=== PATIENT | male | born 1995 | race Caucasian/White ===

== ENCOUNTER 2016-10-11 17:26 | Emergency (ER) | payer OTHER ==
--- NOTE | 2016-10-11 18:53 | ED NURSING NOTES ---
Clinical Report - Nurses [facility] [address] [place] [address] 10/11/2016 17:32 Patient: YVES HARRIS TRIAGE Acuity: LEVEL 4. Chief Complaint: INJURY TO FACE. Alert. No acute distress. --17:49 Dalia Lopez R.N. 17:42 10/11/16. BP: 122/67. HR: 82. RR: 16. O2 saturation: 100%. Temp: 98 F (oral). Pain level now: 0/10. --17:49 Dalia Lopez R.N. Weight: 59.8 kg stated. Height/Length: 72 inches Measured. BMI: 17.9. --17:46 Dalia Lopez R.N. Medications None. --17:43 Dalia Lopez R.N. Medication/allergy information source: the patient. --17:49 Dalia Lopez R.N. Allergies No Known Drug Allergy. --17:43 Dalia Lopez R.N. History Arrived by private vehicle. Historian: patient. Accompanied by (jordan). Primary physician (none). This occurred just prior to arrival. Occurred at work. He sustained a laceration from a sharp edge. No loss of consciousness. No headache. 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 PAST MEDICAL HX: Tetanus status: up-to-date. SOCIAL HX: Current every day light tobacco smoker (cigarette). History of drug use: marijuana. No alcohol use. FALL RISK ASSESSMENT: Fall risk assessment completed. No fall risk identified. NUTRITIONAL RISK ASSESSMENT: The nutritional risk assessment revealed no deficiencies. FUNCTIONAL ASSESSMENT: Functional assessment: no impairments noted. LEARNING NEEDS ASSESSMENT: The learning needs assessment revealed no barriers. SKIN INTEGRITY ASSESSMENT: Skin integrity risk assessment completed. No skin integrity risk identified. --17:49 Dalia Lopez R.N. Assessment GENERAL / NEURO / PSYCH: Alert. Oriented X 4. Appears in no acute distress. Patient appears calm and cooperative. RESPIRATORY: Respirations not labored. CVS: Capillary refill less than 2 seconds. GI / : Abdomen nontender. SKIN: Mucous membranes are pink. Skin is warm and dry. --17:50 Dalia Lopez R.N. Interventions ID band on patient. To treatment room. --17:49 Dalia Lopez R.N. PHYSICAL ASSESSMENT 17:50 10/11/16. Ambulatory to room. GENERAL / NEURO / PSYCH: Alert. Oriented X 4. Appears in no acute distress. HEENT: Left cheek: subcutaneous laceration with controlled bleeding. Head non-tender. Pupils equal, round and reactive to light. Voice within normal limits. No swelling of head. No nasal injury noted. Mucous membranes are pink. RESPIRATORY: Respirations not labored. SKIN: Skin is warm and dry. --17:50 Dalia Lopez R.N. NURSING PROGRESS NOTES 17:51 10/11/16. Patient gowned. Two patient identifiers checked. Call light placed in reach. Side rails up x 1. Bed placed in lowest position. Brakes of bed on. --17:51 Dalia Lopez R.N. DISPOSITION / DISCHARGE 18:51 10/11/16. BP: 118/54. HR: 72. RR: 12. O2 saturation: 100%. Temp: 98.1 F (oral). Pain level now: 0/10. --18:51 Dalia Lopez R.N. 19:05. Condition at departure: improved. No learning barriers present. Discharge instructions provided and reviewed with the patient. Reviewed wound care instructions. Patient verbalized understanding. Written instructions provided in Bangladeshi. The patient was discharged home and accompanied by spouse. He left the Emergency Department ambulatory and via private vehicle. Spouse driving. Medication list reviewed and validated. --19:08 Shantell Garner R.N. 18:51 10/11/16. BP: 118/54. HR: 72. RR: 12. O2 saturation: 100%. Temp: 98.1 F (oral). Pain level now: 0/10. 17:42 10/11/16. BP: 122/67. HR: 82. RR: 16. O2 saturation: 100%. Temp: 98 F (oral). Pain level now: 0/10. --19:08 Shantell Garner R.N. Locked/Released at 10/11/2016 19:09 by Shantell Garner R.N.
--- NOTE | 2016-10-11 18:53 | ED CLINICAL REPORT ---
Clinical Report - Physicians/Mid Levels [facility] [address] [place] [address] 10/11/2016 17:32 Patient: YVES HARRIS Time Seen: 17:43; initial patient contact. Arrived- By private vehicle. Historian- patient. HISTORY OF PRESENT ILLNESS Chief Complaint: INJURY TO FACE. The injury occurred just prior to arrival. Occurred at work. The patient sustained a laceration from a sharp edge. The patient complains of mild pain. No loss of consciousness. Not dazed. REVIEW OF SYSTEMS No numbness. He sustained skin laceration. All systems otherwise negative, except as recorded above. PAST HISTORY Tetanus immunization status is up-to-date. Medications: None. Allergies: No Known Drug Allergy. SOCIAL HISTORY Light tobacco smoker. History of drug use: marijuana. No alcohol use. ADDITIONAL NOTES The nursing notes have been reviewed. PHYSICAL EXAM Vital Signs: 10/11/2016 17:42 BP: 122/67. HR: 82. RR: 16. O2 saturation: 100%. Temp: 98 F. Pain level now: 0/10. Have been reviewed as normal. Appearance: Alert. No acute distress. Head: Head non-tender. No swelling of head. Left cheek: mild erythema and tenderness and subcutaneous 1.5 cm laceration. No swelling. ENT: No dental injury. Pharynx normal. Neck: Painless ROM. Non-tender. Skin: Skin warm and dry. Neuro: Oriented X 3. Mood/affect normal. PROGRESS AND PROCEDURES Laceration Repair: Time: 18:51. Location: face. Per protocol, time-out completed immediately before the procedure. Length: 2.0cm. Complexity: simple (local anesthesia used). Wound depth/shape- subcutaneous. Distal neuro/vascular/tendon status normal. Anesthesia provided using 1% lidocaine. Prepped with Hibiclens. Wound explored, irrigated and examined to the base in bloodless field extensively with normal saline. Closure of skin: 5-0 Prolene (3 sutures). Post-procedure: he is stable and there are no complications. Bleeding is controlled and neuro-vascular status is intact distal to the wound. Dressing applied. Tetanus immunization up-to-date. Estimated blood loss: 2 mL. Disposition: Discharged to work in good and improved condition. Condition: good. CLINICAL IMPRESSION Single deep laceration to the left cheek area.Treatment of laceration not delayed. No infection or foreign body present. INSTRUCTIONS Protect wound and keep wound area clean. Change dressing twice daily. You may wash wounds briefly, then dry. Apply bacitracin twice daily. Sutures should be removed in five days. Return to work today. Your Current Medications: CONTINUE TAKING THE FOLLOWING MEDICATIONS: None*. Follow-up: Screening today revealed the patient's blood pressure to be in the normal range. Follow-up with: [facility], , , [address], [facility], [address] Follow up in five days for suture removal. Call for an appointment. (Electronically signed by Gunnar Rico Dr. 10/11/2016 21:27)
--- NOTE | 2016-10-11 18:53 | ED CLINICAL REPORT ---
Clinical Report - Physicians/Mid Levels [facility] [address] [place] [address] 10/11/2016 17:32 Patient: YVES HARRIS Time Seen: 17:43; initial patient contact. Arrived- By private vehicle. Historian- patient. HISTORY OF PRESENT ILLNESS Chief Complaint: INJURY TO FACE. The injury occurred just prior to arrival. Occurred at work. The patient sustained a laceration from a sharp edge. The patient complains of mild pain. No loss of consciousness. Not dazed. REVIEW OF SYSTEMS No numbness. He sustained skin laceration. All systems otherwise negative, except as recorded above. PAST HISTORY Tetanus immunization status is up-to-date. Medications: None. Allergies: No Known Drug Allergy. SOCIAL HISTORY Light tobacco smoker. History of drug use: marijuana. No alcohol use. ADDITIONAL NOTES The nursing notes have been reviewed. PHYSICAL EXAM Vital Signs: 10/11/2016 17:42 BP: 122/67. HR: 82. RR: 16. O2 saturation: 100%. Temp: 98 F. Pain level now: 0/10. Have been reviewed as normal. Appearance: Alert. No acute distress. Head: Head non-tender. No swelling of head. Left cheek: mild erythema and tenderness and subcutaneous 1.5 cm laceration. No swelling. ENT: No dental injury. Pharynx normal. Neck: Painless ROM. Non-tender. Skin: Skin warm and dry. Neuro: Oriented X 3. Mood/affect normal. PROGRESS AND PROCEDURES Laceration Repair: Time: 18:51. Location: face. Per protocol, time-out completed immediately before the procedure. Length: 2.0cm. Complexity: simple (local anesthesia used). Wound depth/shape- subcutaneous. Distal neuro/vascular/tendon status normal. Anesthesia provided using 1% lidocaine. Prepped with Hibiclens. Wound explored, irrigated and examined to the base in bloodless field extensively with normal saline. Closure of skin: 5-0 Prolene (3 sutures). Post-procedure: he is stable and there are no complications. Bleeding is controlled and neuro-vascular status is intact distal to the wound. Dressing applied. Tetanus immunization up-to-date. Estimated blood loss: 2 mL. Disposition: Discharged to work in good and improved condition. Condition: good. CLINICAL IMPRESSION Single deep laceration to the left cheek area.Treatment of laceration not delayed. No infection or foreign body present. INSTRUCTIONS Protect wound and keep wound area clean. Change dressing twice daily. You may wash wounds briefly, then dry. Apply bacitracin twice daily. Sutures should be removed in five days. Return to work today. Your Current Medications: CONTINUE TAKING THE FOLLOWING MEDICATIONS: None*. Follow-up: Screening today revealed the patient's blood pressure to be in the normal range. Follow-up with: [facility], , , [address], [facility], [address] Follow up in five days for suture removal. Call for an appointment. (Electronically signed by Gunnar Rico Dr. 10/11/2016 21:27)
--- NOTE | 2016-10-11 18:53 | ED NURSING NOTES ---
Clinical Report - Nurses [facility] [address] [place] [address] 10/11/2016 17:32 Patient: YVES HARRIS TRIAGE Acuity: LEVEL 4. Chief Complaint: INJURY TO FACE. Alert. No acute distress. --17:49 Dalia Lopez R.N. 17:42 10/11/16. BP: 122/67. HR: 82. RR: 16. O2 saturation: 100%. Temp: 98 F (oral). Pain level now: 0/10. --17:49 Dalia Lopez R.N. Weight: 59.8 kg stated. Height/Length: 72 inches Measured. BMI: 17.9. --17:46 Dalia Lopez R.N. Medications None. --17:43 Dalia Lopez R.N. Medication/allergy information source: the patient. --17:49 Dalia Lopez R.N. Allergies No Known Drug Allergy. --17:43 Dalia Lopez R.N. History Arrived by private vehicle. Historian: patient. Accompanied by (jordan). Primary physician (none). This occurred just prior to arrival. Occurred at work. He sustained a laceration from a sharp edge. No loss of consciousness. No headache. 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 PAST MEDICAL HX: Tetanus status: up-to-date. SOCIAL HX: Current every day light tobacco smoker (cigarette). History of drug use: marijuana. No alcohol use. FALL RISK ASSESSMENT: Fall risk assessment completed. No fall risk identified. NUTRITIONAL RISK ASSESSMENT: The nutritional risk assessment revealed no deficiencies. FUNCTIONAL ASSESSMENT: Functional assessment: no impairments noted. LEARNING NEEDS ASSESSMENT: The learning needs assessment revealed no barriers. SKIN INTEGRITY ASSESSMENT: Skin integrity risk assessment completed. No skin integrity risk identified. --17:49 Dalia Lopez R.N. Assessment GENERAL / NEURO / PSYCH: Alert. Oriented X 4. Appears in no acute distress. Patient appears calm and cooperative. RESPIRATORY: Respirations not labored. CVS: Capillary refill less than 2 seconds. GI / : Abdomen nontender. SKIN: Mucous membranes are pink. Skin is warm and dry. --17:50 Dalia Lopez R.N. Interventions ID band on patient. To treatment room. --17:49 Daila Lopez R.N. PHYSICAL ASSESSMENT 17:50 10/11/16. Ambulatory to room. GENERAL / NEURO / PSYCH: Alert. Oriented X 4. Appears in no acute distress. HEENT: Left cheek: subcutaneous laceration with controlled bleeding. Head non-tender. Pupils equal, round and reactive to light. Voice within normal limits. No swelling of head. No nasal injury noted. Mucous membranes are pink. RESPIRATORY: Respirations not labored. SKIN: Skin is warm and dry. --17:50 Dalia Lopez R.N. NURSING PROGRESS NOTES 17:51 10/11/16. Patient gowned. Two patient identifiers checked. Call light placed in reach. Side rails up x 1. Bed placed in lowest position. Brakes of bed on. --17:51 Dalia Lopez R.N. DISPOSITION / DISCHARGE 18:51 10/11/16. BP: 118/54. HR: 72. RR: 12. O2 saturation: 100%. Temp: 98.1 F (oral). Pain level now: 0/10. --18:51 Dalia Lopez R.N. 19:05. Condition at departure: improved. No learning barriers present. Discharge instructions provided and reviewed with the patient. Reviewed wound care instructions. Patient verbalized understanding. Written instructions provided in Malaysian. The patient was discharged home and accompanied by spouse. He left the Emergency Department ambulatory and via private vehicle. Spouse driving. Medication list reviewed and validated. --19:08 Shantell Garner R.N. 18:51 10/11/16. BP: 118/54. HR: 72. RR: 12. O2 saturation: 100%. Temp: 98.1 F (oral). Pain level now: 0/10. 17:42 10/11/16. BP: 122/67. HR: 82. RR: 16. O2 saturation: 100%. Temp: 98 F (oral). Pain level now: 0/10. --19:08 Shantell Garner R.N. Locked/Released at 10/11/2016 19:09 by Shantell Garner R.N.
--- NOTE | 2016-10-11 21:27 | ED MED RECONCILIATION SUMMARY ---
Patient: YVES HARRIS Medication Reconciliation Report [facility] VisitID: [id number] [address] [place] [address] 21y, M Registration Date/Time: 10/11/2016 Weight: 59.8 kg Height/Length: 72 in. BMI: 17.9 ALLERGIES: No Known Drug Allergy The patient's Home Medications are listed below: NONE. The source(s) of the original Home Medication information: patient The following Medications were given to the patient in the Emergency Department: None. The following Medications were prescribed to the patient: None.
--- NOTE | 2016-10-11 21:27 | ED MAR SUMMARY ---
..... Medication Administration Record [facility] [address], [place] [id number] Patient: YVES HARRIS Visit ID: [id number] 21y, M Weight: 59.8 kg Height/Length: 72 in BMI: 17.9 ALLERGIES: No Known Drug Allergy
--- NOTE | 2016-10-11 21:27 | ED DISCHARGE INSTRUCTIONS ---
Patient: YVES HARRIS General Instructions [facility] VisitID: [id number] [address] [place] [address] 21y, M Registration Date/Time: 10/11/2016 Single deep laceration to the left cheek area.Treatment of laceration not delayed. No infection or foreign body present. INSTRUCTIONS Protect wound and keep wound area clean. Change dressing twice daily. You may wash wounds briefly, then dry. Apply bacitracin twice daily. Sutures should be removed in five days. Return to work today. Your Current Medications: CONTINUE TAKING THE FOLLOWING MEDICATIONS: None*. Follow-up: Screening today revealed the patient's blood pressure to be in the normal range. Follow-up with: [facility], , , [address], , [place], [address] Follow up in five days for suture removal. Call for an appointment. ADDITIONAL INFORMATION Laceration (All Closures) Alaceration is a cut through the skin. This will usually require stitches (sutures) or suzan if it is deep. Minor cuts may be treated with a surgical tape closure orskin glue. Home care The following guidelines will help you care for your laceration at home: Extremity, face, or trunk wounds Keep the wound clean and dry. If a bandage was applied and it becomes wet or dirty, replace it. Otherwise, leave it in place for the first 24 hours. If stitches or suzan were used, clean the wound daily. After removing the bandage, wash the area with soap and water. Use a wet cotton swab to loosen and remove any blood or crust that forms. The doctor may prescribe an antibiotic cream or ointment to prevent infection. Do not stop taking this medication until you have finished the prescribed course or the doctor tells you to stop. The doctor may also prescribe medications for pain. Follow the doctors instructions for taking these medications. You may remove the bandage to shower as usual after the first 24 hours, but do not soak the area in water (no swimming) until the stitches or suzan are removed. If surgical tape was used, keep the area clean and dry. If it becomes wet, blot it dry with a towel. If skin glue was used, do not scratch, rub, or pick at the adhesive film. Do not place tape directly over the film. Do not apply liquid, ointment, or creams to the wound while the film is in place. Do not clean the wound with peroxide and do not apply ointments. Avoid activities that cause heavy sweating until the film has fallen off. Protect the wound from prolonged exposure to sunlight or tanning lamps. You may shower as usual but do not soak the wound in water (no baths or swimming). The film will fall off by itself in 510 days. Scalp wounds During the first two days, you may carefully rinse your hair in the shower to remove blood, glass or dirt particles. After two days, you may shower and shampoo your hair normally. Do not soak your scalp in the tub or go swimming until the stitches or suzan have been removed. Talk with your doctor before applying any antibiotic ointment to the wound. Mouth wounds Eat soft foods to reduce pain. If the cut is inside of your mouth, clean by rinsing after each meal and at bedtime with a mixture of equal parts water and hydrogen peroxide (do not swallow!). Or, you can use a cotton swab to directly apply hydrogen peroxide onto the cut. Mouth wounds can be painful when eating. You may use an [id number] local numbing solution for pain relief. If this is not available, you may use any numbing solution for teething babies. You may apply this directly to the sores with a cotton-tip swab or with your finger. Follow-up care Follow up with your health care provider. Most skin wounds heal within ten days. Mouth and facial wounds heal within five days. However, even with proper treatment, a wound infection may sometimes occur. Therefore, you should check the wound daily for signs of infection listed below. Stitches should be removed from the face within five days; stitches and suzan should be removed from other parts of the body within 714 days. If dissolving stitches were used in the mouth, these will fall out or dissolve without the need for removal. If tape closures were used, remove them yourself if they have not fallen off after 7 days. Ifskin glue was used, the film will fall off by itself in 510 days. When to seek medical care Get prompt medical attention if any of these occur: Bleeding not controlled by direct pressure Signs of infection, including increasing pain in the wound, increasing wound redness or swelling, or pus coming from the wound Fever of 100.4F (38C) or higher, or as directed by your health care provider Stitches or suzan come apart or fall out or surgical tape falls off before 7 days Wound edges re-open Laceration: Will There Be A Scar? A laceration is a cut through one or more layers of the skin. The goal of emergency treatment is to clean the wound and close it to prevent infection, control bleeding and speed healing. Cuts heal because the body is able to repair the skin by "sealing" the edges together with collagen, a kind of "skin cement." How deep your cut is, its location on your body, your age and the way your skin heals all determine how visible the final scar will be. Some persons tend to heal with more scar tissue than others. This cut will probably heal similar to other cuts you have had in the past. What You Can Do: There are a few simple things that you can do to limit the amount of scar that forms: 1) PREVENT INFECTION: An infected wound makes a bigger scar. Keep the wound clean and dry. Change the dressing and apply any ointment/cream as directed. 2) MASSAGE THE WOUND:After the stitches have been removed: Use a moisturizing cream or lotion containing Aloe or Vitamin E Oil and gently massage the skin around the wound with your fingertips (wash your hands first!). Do this twice a day for the first two weeks, then once a day for a month. This will increase the flow of oxygen and blood to the wound and prevent excess scar tissue from building up. 3) AVOID SUN EXPOSURE: During the first six months, avoid sun exposure since the scar may campbell a much darker color than the skin around it. When in the sun, use SPF #50 (or greater) sun block on the scar, or cover the area with a hat or clothing. What To Expect: -- The cut will be sealed within 2 days and will be strong within 5-10 days. However, it will take at least SIX MONTHS for it to be fully healed. -- During the FIRST THREE MONTHS, you may notice the scar line getting more red or purple in color. The scar may become raised. The skin around the wound may feel thick and lumpy. -- During the FOURTH TO SIXTH MONTHS, this process begins to reverse. The red and purple color will fade, the scar line flattens, and the skin around it feels more normal. -- In most cases, the way the scar line looks after six months is the way it will remain, although there may be some continued improvement up to one year after the injury. Is There Anything Else That Can Be Done? If you do not like the way the scar looks after six months, a plastic surgeon may be able to perform a "scar revision." If you have any questions or problems as your wound heals, contact your doctor or this facility. We will be glad to assist you. You have been given the following additional information: Laceration, All Laceration, How To Minimize Scar Return to work today. (Electronically signed by Gunnar Rico Dr. 10/11/2016 21:27)
--- NOTE | 2016-10-11 21:27 | ED MAR SUMMARY ---
..... Medication Administration Record [facility] [address] [place], [place] [id number] Patient: YVES HARRIS Visit ID: [id number] 21y, M Weight: 59.8 kg Height/Length: 72 in BMI: 17.9 ALLERGIES: No Known Drug Allergy
--- NOTE | 2016-10-11 21:27 | ED MED RECONCILIATION SUMMARY ---
Patient: YVES HARRIS Medication Reconciliation Report [facility] VisitID: [id number] [address] [place] [address] 21y, M Registration Date/Time: 10/11/2016 Weight: 59.8 kg Height/Length: 72 in. BMI: 17.9 ALLERGIES: No Known Drug Allergy The patient's Home Medications are listed below: NONE. The source(s) of the original Home Medication information: patient The following Medications were given to the patient in the Emergency Department: None. The following Medications were prescribed to the patient: None.
== END 2016-10-11 19:05 | disposition home or self-care (01) ==
LOC: ED SRH 17:26
DX: S01.412A Laceration without foreign body of left cheek and temporomandibular area, initial encounter (principal); W26.8XXA Contact with other sharp object(s), not elsewhere classified, initial encounter; Y99.0 Civilian activity done for income or pay; Y92.89 Other specified places as the place of occurrence of the external cause; F17.210 Nicotine dependence, cigarettes, uncomplicated